=== PATIENT | female | born 1985 | race African-American/Black ===

== ENCOUNTER 2022-10-12 00:12 | Emergency (ER) | payer MEDICAID, OTHER ==
[~2022-10-12] VITALS: Ht 157.5 cm; Wt 109.0 kg
[~2022-10-12 00:12] MED LIST: ACET-2708 MT
[2022-10-12 01:10] VITALS: BP 120/68
[2022-10-12] MEDS ORDERED: ACETAMINOPHEN 500MG TABLET PO ONE (03:45)
[2022-10-12] MEDS ORDERED: TOPUD MT (05:25)
[2022-10-12 05:51] LABS: CLARITY URINE CLEAR (CLEAR); COLOR URINE YELLOW (YELLOW); KETONES URINE TRACE (NEGATIVE); LEUKOCYTE ESTERASE URINE NEGATIVE (NEGATIVE); NITRITE URINE NEGATIVE (NEGATIVE); OCCULT BLOOD URINE NEGATIVE (NEGATIVE); PH URINE 5.5 (4.5-8.0); PROTEIN URINE NEGATIVE (NEGATIVE); SPECIFIC GRAVITY URINE 1.026 (1.005-1.030); UROBILINOGEN URINE 0.2 E.U./dL (0.2-1.0)
== END 2022-10-12 05:48 | disposition home or self-care (01) ==
LOC: ER 00:12
DX: O20.0 Threatened abortion (principal); O26.891 Other specified pregnancy related conditions, first trimester; M54.50 Low back pain, unspecified; Z3A.01 Less than 8 weeks gestation of pregnancy; Z98.890 Other specified postprocedural states; V43.52XA Car driver injured in collision with other type car in traffic accident, initial encounter; Y93.89 Activity, other specified; Y92.488 Other paved roadways as the place of occurrence of the external cause
CPT/HCPCS: 36415; 76801; 81003; 84702; 86900; 99284